=== PATIENT | female | born 1970 | race African-American/Black ===

== ENCOUNTER → 2023-06-22 | Outpatient (CLI) | payer MEDICARE, OTHER ==
--- NOTE | 2023-06-22 19:47 | US ---
EXAMINATION TYPE: US thyroid st tissue head/neck DATE OF EXAM: 06/22/2023 COMPARISON: NONE CLINICAL INDICATION: Female, 52 years old with history of R22.1 LOCALIZED SWELLING, MASS AND LUMP, NE CK; Dr felt swelling in neck; Patient denies any signs/symptoms/thyroid history GLAND SIZE: Right Lobe: 5.6 x 2.1 x 1.9 cm Overall Parenchyma: homogeneous Left Lobe: 5.4 x 2.2 x 1.8 cm Overall Parenchyma: heterogenous Isthmus Thickness: 0.9 cm NODULES RIGHT: # of nodules measured on right: 0 LEFT: # of nodules measured on left: 3 1. 1.2 X 0.9 x 1.0 cm, upper lateral, solid or almost completely solid, isoechoic TR 3 nodule, whic h is wider than tall, with ill-defined margins, without echogenic foci. No Prior 2. 0.9 X 0.8 x 0.9 cm, mid mid, mixed cystic and solid, hypoechoic TR 4 nodule, which is wider suraj n tall, with ill-defined margins, without echogenic foci. No Prior 3. 1.4 X 1.4 x 1.1 cm, lower mid, mixed cystic and solid, hypoechoic TR 4 nodule, which is taller t lucas wide, with ill-defined margins, without echogenic foci. No Prior ISTHMUS: # of nodules measured in the isthmus: 0 Bilateral neck scanned, no evidence of lymphadenopathy. IMPRESSION: 1. Mild thyromegaly with 3 nodules on the left, possible multinodular goiter. 2. The largest is a 1.4 cm TR4 nodule. The second dominant nodule represents a 1.2 cm TR3 nodule. 2017 ACR TI-RADS LEVEL: TR-RADS 4 - Moderately Suspicious: Follow if > 1 cm, FNA if > 1.5 cm *Highest TI-RADS level nodule reported
== END | disposition home or self-care (01) ==
LOC: RADUSWWP 12:27
PROVIDERS: ATTEND Family Medicine
DX: E04.2 Nontoxic multinodular goiter (principal)
CPT/HCPCS: 76536

== ENCOUNTER 2023-07-29 08:51 | Day surgery (SDC) | payer MEDICARE, OTHER ==
[2023-07-21 10:31] VITALS: BMI 27.3
[~2023-07-29 08:51] MED LIST: LACTATED RINGERS 1,000 ML IV SCH; LIDOCAINE 1% (10MG/ML) FOR IV START INTRADERMA PRN
[2023-07-29] MEDS ORDERED: PROPOFOL 10 MG/ML 20 ML VIAL IV ONE (09:41)
[2023-07-29 09:42] VITALS: RESP 16; TEMP 97
[2023-07-29 09:43] LABS: Glucose,Whole Blood 109 mg/dL (70-110)
--- NOTE | 2023-07-29 10:06 | P.GSHP ---
History of Present Illness H&P Date: 07/29/23 Chief Complaint: Anemia This 50-year-old female who's of anemia. Patient's had some rectal bleeding. She presents today for EGD colonoscopy. Past Medical History Past Medical History: Chest Pain / Angina, CVA/TIA, Diabetes Mellitus, Hyperlipidemia, Hypertension, Myocardial Infarction ([place]) Additional Past Medical History / Comment(s): heart murmur, low heart rate, low iron Last Myocardial Infarction Date:: 2017 History of Any Multi-Drug Resistant Organisms: None Reported Past Surgical History: No Surgical Hx Reported Past Anesthesia/Blood Transfusion Reactions: No Reported Reaction Additional Past Anesthesia/Blood Transfusion Reaction / Comment(s): never has had surgery , no blood transfusion reaction Smoking Status: Current some day smoker - Past Family History Mother Family Medical History: Deep Vein Thrombosis (DVT) Medications and Allergies Home Medications Medication Instructions Recorded Confirmed Type Cyclobenzaprine [Flexeril] 10 mg PO DAILY PRN 10/06/22 07/29/23 History Ferrous Sulfate [Feosol] 1 tab PO DAILY 10/06/22 07/29/23 History Hydrocodone/Acetaminophen 1 tab PO DAILY PRN 10/06/22 07/29/23 History [Hydrocodone/Acetaminophen 7.5-325] amLODIPine BESYLATE 5 mg PO DAILY 10/06/22 07/29/23 History Rosuvastatin Calcium 20 mg PO DAILY 11/03/22 07/29/23 History Empagliflozin [Jardiance] 10 mg PO DAILY 07/21/23 07/29/23 History Allergies Allergy/AdvReac Type Severity Reaction Status Date / Time No Known Allergies Allergy Verified 07/29/23 09:25 Surgical - Exam Vital Signs Temp Pulse Resp BP Pulse Ox 97 F L 85 16 144/83 93 L 07/29/23 09:15 07/29/23 09:15 07/29/23 09:15 07/29/23 09:15 07/29/23 09:15 - General well developed, well nourished, no distress - Eyes PERRL - ENT normal pinna - Neck no masses - Respiratory normal expansion - Cardiovascular Rhythm: regular - Abdomen Abdomen: soft, non tender Assessment and Plan Assessment: Anemia GI bleed. We'll perform colonoscopy.
--- NOTE | 2023-07-29 10:08 | P.OP ---
Date of Procedure: 07/29/23 Preoperative Diagnosis: Prevena GI bleed Postoperative Diagnosis: Internal and external hemorrhoids Mild antral gastritis Procedure(s) Performed: EGD Colonoscopy Anesthesia: MAC Surgeon: Khoi Mclaughlin Pathology: other (Antrum) Condition: stable Disposition: PACU Description of Procedure: The patient's placed on the endoscopy table lateral position she received IV sedation. The gastro-/oropharynx passed in the esophagus stomach. Scope was then placed through the pylorus. The first and second portion of the duodenum appeared normal. Scope was then brought back the antrum was inflamed. A biopsies performed. Scope was retroflexed and remainder the stomach appeared normal. The GE junction was at 40 cm. The distal esophagus appeared normal. The proximal esophagus appeared normal. Scope withdrawn for patient.. Next digital rectal exam is performed. There is a large internal and external hemorrhoids seen. The flexible close scope was then placed patient anus and passed throughout the entire colon. The ileocecal valve was visualized. The cecum, ascending and transverse colon appeared normal. The descending and sigmoid colon appeared normal. Scope was brought back the rectum this appeared normal. Scope withdrawn the anus and large internal and external hemorrhoids were noted. There is no evidence of any active GI bleed. Is presumed the patient may have had bleeding from hemorrhoids.
[2023-07-29 10:28] VITALS: BP 114/73; PULSE 57
== END 2023-07-29 10:37 | disposition home or self-care (01) ==
LOC: ORWHC2ENDO 08:51
PROVIDERS: ATTEND Surgery
DX: K29.50 Unspecified chronic gastritis without bleeding (principal); K64.8 Other hemorrhoids; K64.4 Residual hemorrhoidal skin tags; D50.9 Iron deficiency anemia, unspecified; E11.69 Type 2 diabetes mellitus with other specified complication; E78.5 Hyperlipidemia, unspecified; Z86.73 Personal history of transient ischemic attack (TIA), and cerebral infarction without residual deficits; Z79.84 Long term (current) use of oral hypoglycemic drugs; Z79.899 Other long term (current) drug therapy; I10 Essential (primary) hypertension; R00.1 Bradycardia, unspecified; F17.210 Nicotine dependence, cigarettes, uncomplicated
CPT/HCPCS: 88305; 88342; 45378; 43239; J2704

== ENCOUNTER → 2024-11-30 | Outpatient (CLI) | payer MEDICARE, OTHER ==
--- NOTE | 2024-11-30 16:34 | US ---
EXAMINATION TYPE: US thyroid st tissue head/neck DATE OF EXAM: 11/30/2024 COMPARISON: 06/22/2023. CLINICAL INDICATION: Female, 54 years old with history of E041 THYROID NODULE; Not on thyroid meds. TECHNIQUE: Grayscale and color Doppler imaging of the thyroid gland. FINDINGS: GLAND SIZE: Right Lobe: 5.0 x 2.0 x 1.7 cm Overall Parenchyma: homogeneous Left Lobe: 5.8 x 1.9 x 2.5 cm Overall Parenchyma: heterogeneous Isthmus Thickness: 0.8 cm NODULES RIGHT: # of nodules measured on right: 0 LEFT: # of nodules measured on left: 2 1. 1.2 X 1.1 x 1.1 cm, upper lateral, Prior size: 1.2 x 0.9 x 1.0 cm TIRADS Score: 3 TIRADS Category 3: Composition: Solid or almost completely solid (2 points). Echogenicity: Hyperechoic or isoechoic (1 point). Shape: Wider than tall (0 points). Margin: Smooth (0 points). Echogenic foci: None or large comet-tail artifacts (0 points) Recommendation: If >2.5cm: FNA; If >1.5cm: Follow up at 1,3,5 years 2. 1.3 X 1.3 x 1.3 cm, lower mid, Prior size: 1.4 x 1.4 x 1.1 cm TIRADS Score: 3 TIRADS Category 3: Composition: Solid or almost completely solid (2 points). Echogenicity: Hyperechoic or isoechoic (1 point). Shape: Wider than tall (0 points). Margin: Smooth (0 points). Echogenic foci: None or large comet-tail artifacts (0 points) Recommendation: If >2.5cm: FNA; If >1.5cm: Follow up at 1,3,5 years ISTHMUS: # of nodules measured in the isthmus: 0 Bilateral neck scanned, no evidence of lymphadenopathy. IMPRESSION: Which have slightly decreased in size. These do not meet criteria for follow-up or biopsy by size cri teria. Highest TI-RADS level nodule reported: 2017 ACR TI-RADS LEVEL: TI-RADS 3 - Mildly Suspicious: Follow if > 1.5 cm, FNA if > 2.5 cm TI-RADS assessment score and recommendation for follow-up based on appropriate scoring and treatment protocols. TR1 Benign No FNA TR2 Not suspicious No FNA TR3: If nodule size is ? 2.5 cm, FNA is recommended. If nodule size is ? 1.5 cm, follow-up imaging at 1, 3, and 5 years is recommended. TR4: If nodule size is ? 1.5 cm, FNA is recommended. If nodule size is ? 1.0 cm, follow-up imaging at 1, 2, 3, and 5 years is recommended. TR5: If nodule size is ? 1.0 cm, FNA is recommended. If nodule size is ? 0.5 cm, annual follow-up for up to 5 years is recommended. TR 1 thyroid nodules have a 0.3 % risk of malignancy. TR 2 thyroid nodules have a 1.5 % risk of malignancy. TR 3 thyroid nodules have a 4.8 % risk of malignancy. TR 4 thyroid nodules have a 9.1 % risk of malignancy. TR 5 thyroid nodules have a 35 % risk of malignancy. [email or web address] [facility], , 11/30/2024 4:32 PM
--- NOTE | 2024-11-30 17:09 | CTL ---
EXAMINATION TYPE: CT Low Dose Lung DATE OF EXAM: 11/30/2024 4:11 PM COMPARISON: None. CLINICAL INDICATION: Female, 54 years old with history of Z12.2 SCREENING F17.210 LUZ ELENA DEP; history of smoking, history of tobacco use. TECHNIQUE: Multiple axial non-contrast scans were obtained from approximately the lung apices through the upper abdomen. Coronal and sagittal reformatted images were obtained. Low dose technique was uti lized. MIP were created on a separate workstation and submitted for review. CT DLP: 88 mGycm, Automated exposure control for dose reduction was used. CT Contrast: Contrast used: None Oral contrast used: None FINDINGS: Lack of intravenous contrast and low dose technique limits the evaluation of the vascular and soft ti ssue structures. LUNGS: No evidence of pulmonary fibrosis. No evidence of focal consolidation, pneumothorax or pleural effusion. Centrilobular emphysema changes. Nodules: RUL: None. RML: None. RLL: None. WILFREDO: None. LLL: None. AIRWAY: Patent and unremarkable. HEART: Size within normal limits. Mild coronary artery calcifications present. MEDIASTINUM: No gross evidence of adenopathy. VASCULATURE: No aortic aneurysm. MUSCULOSKELETAL: No acute osseous abnormalities SOFT TISSUES/LYMPH NODES: Unremarkable. LOWER NECK: No significant findings. UPPER ABDOMEN: No significant findings. IMPRESSION: 1. No clinically significant pulmonary nodules. 2. Mild emphysema. CT LUNG RAD AND CT CHEST RECOMMENDATION: Lung-Rad 1 Negative: Continue annual screening with LDCT in 12 months. S Modifier (other clinically significant findings): None Recommend smoking cessation (if current smoker), or continuation of smoking cessation (if prior smoke r). Annual screening for lung cancer with low-dose computed tomography is recommended in adults ages 55 to 77 years who have a 30 pack-year smoking history and currently smoke or have quit within the pa st 15 years. Screening should be discontinued once a person has not smoked for 15 years or develops a health problem that substantially limits life expectancy or the ability or willingness to have curat petra lung surgery. Lung rads 2021 [email or web address] [facility], , 11/30/2024 5:06 PM
--- NOTE | 2024-12-01 07:35 | MM ---
Reason for Exam: Screening (asymptomatic). Patient History: Menarche at age 13. First Full-Term at age 17. Postmenopausal. Risk Values: Samara 5 year model risk: 1.3%. NCI Lifetime model risk: 8.0%. Prior Study Comparison: No prior studies available for comparison. Tissue Density: There are scattered areas of fibroglandular density. Findings: Analyzed By CAD. Asymmetric prominent right axillary lymph nodes. Overall Assessment: Incomplete: need additional imaging evaluation, BI-RAD 0 Management: Diagnostic Breast Ultrasound of the right breast. Targeted ultrasound right axilla. Patient should continue monthly self-breast exams. A clinical breast exam by your physician is recommended on an annual basis. This exam should not preclude additional follow-up of suspicious palpable abnormalities. Note on Samara scores and lifetime risk: 1. A Samara score greater than 3% is considered moderate risk. If this is the case, consider specialist referral to assess eligibility for a risk reducing agent. 2. If overall lifetime risk for the development of breast cancer is 20% or higher, the patient may qualify for future screening with alternating mammogram and breast MRI. [facility], , 12/01/2024 7:32 AM. Electronically signed and approved by: Kumar Moreno M.D.
== END | disposition home or self-care (01) ==
LOC: RADUSWWP 15:07
PROVIDERS: ATTEND Family Medicine
DX: Z12.31 Encounter for screening mammogram for malignant neoplasm of breast (principal); Z12.2 Encounter for screening for malignant neoplasm of respiratory organs; E04.1 Nontoxic single thyroid nodule; J43.2 Centrilobular emphysema; F17.210 Nicotine dependence, cigarettes, uncomplicated; R92.323 Mammographic fibroglandular density, bilateral breasts; Z78.0 Asymptomatic menopausal state
CPT/HCPCS: 71271; 76536; 77063; 77067

== ENCOUNTER → 2024-12-06 | Outpatient (CLI) | payer MEDICARE, OTHER ==
--- NOTE | 2024-12-06 15:52 | USB ---
Reason for Exam: Additional evaluation requested from abnormal screening. Patient History: Menarche at age 13. First Full-Term at age 17. Postmenopausal. Risk Values: Samara 5 year model risk: 1.3%. NCI Lifetime model risk: 8.0%. Technique: Method: Targeted. Prior Study Comparison: 11/30/2024 Bilateral MG 3D screening mammo w/cad, [facility]. Findings: The axilla of the right breast was scanned. Technique utilized:US breast workup limited RT Image; Ultrasound imaging of: Area of concern, retroareolar region and axilla. Enlarged lymph nodes in the right axilla which appear similar to the contralateral side on CT imaging 11/30/2024. Given no discrete finding in the fatty right breast. A precautionary 3 month follow-up is recommended for stability. Overall Assessment: Probably benign, BI-RAD 3 Management: Diagnostic Breast Ultrasound of the right breast in 3 months. A clinical breast exam by your physician is recommended on an annual basis and results should be correlated with mammographic findings. This exam should not preclude additional follow-up of suspicious palpable abnormalities. Results were given to the patient verbally at the time of exam. [facility], , 12/06/2024 3:48 PM. Electronically signed and approved by: Jordon Singh DO
== END | disposition home or self-care (01) ==
LOC: RADUSWWP 15:28
PROVIDERS: ATTEND Family Medicine
DX: R92.8 Other abnormal and inconclusive findings on diagnostic imaging of breast (principal); Z78.0 Asymptomatic menopausal state